=== PATIENT | female | born 1975 | race Caucasian/White ===

== ENCOUNTER → 2019-02-19 | Outpatient (CLI) | payer BC, MEDICAID ==
--- NOTE | 2019-02-19 08:52 | MY ---
Screening Tomosynthesis Bi HISTORY: Screening COMPARISON: 2018 TECHNIQUE: Digital breast tomosynthesis technique performed. C views and 3D source images in the CC and MLO projections reviewed. Computer-Aided Detection system was utilized. BREAST DENSITY: The breasts are extremely dense, which lowers the sensitivity of mammography. FINDINGS: There is no dominant mass, skin thickening, or nipple retraction. No suspicious calcifications are seen. IMPRESSION: No evidence of underlying malignancy or suspicious interval change. RECOMMENDATION: One-year mammographic follow-up is recommended as per ACR guidelines. BI-RADS 1: Negative.
== END ==
LOC: JP.MAM 07:52
PROVIDERS: ATTEND Family Medicine
DX: Z12.31 Encounter for screening mammogram for malignant neoplasm of breast (principal)
CPT/HCPCS: 77063; 77063-26; 77067; 77067-26